=== PATIENT | male | born 1940 | race Caucasian/White ===

== ENCOUNTER 2016-04-01 09:36 | Inpatient (IN) | payer MEDICARE, BC ==
[~2016-04-01] VITALS: Ht 167.6 cm; Wt 87.0 kg
[2016-04-01 10:09] LABS: HEMOGLOBIN 12.2 gm/dl (14.0-17.5); RED BLOOD COUNT 4.54 M/UL (4.20-5.50); WHITE BLOOD COUNT 5.9 K/UL (4.5-11.0)
[2016-04-01] MEDS ORDERED: IBUPROFEN800 MG PO (16:50)
[2016-04-01] MEDS ORDERED: LASIX20 MG PO (16:51)
[2016-04-01] MEDS ORDERED: LISINOPRIL5 MG PO (16:51)
[2016-04-01] MEDS ORDERED: PLAVIX 75 MG TA75 MG PO (16:51)
[2016-04-01] MEDS ORDERED: VITAMIN D31 ML PO (16:52)
[2016-04-01] MEDS ORDERED: METOPROLOL SUCC25 MG PO (16:52)
[2016-04-01] MEDS ORDERED: SUPER B-50 COM1 EACH PO (16:53)
[2016-04-01] MEDS ORDERED: [UNRECOGNIZED DRUG - OTHER] PO (16:54)
[2016-04-01] MEDS ORDERED: MELATONIN10 M2 PO (16:55)
[2016-04-01] MEDS ORDERED: L-CARNITINE250 MG PO (16:56)
[2016-04-01] MEDS ORDERED: CURCUMIN250 GM PO (16:59)
[2016-04-01] MEDS ORDERED: BOSWELLIA SERRAT1 GM PO (16:59)
[2016-04-02 05:56] LABS: HEMOGLOBIN 11.5 gm/dl (14.0-17.5); RED BLOOD COUNT 4.26 M/UL (4.20-5.50)
[2016-04-02 05:58] LABS: WHITE BLOOD COUNT 12.2 K/UL (4.5-11.0)
[2016-04-03 04:21] LABS: RED BLOOD COUNT 4.09 M/UL (4.20-5.50)
[2016-04-03 04:22] LABS: WHITE BLOOD COUNT 15.3 K/UL (4.5-11.0)
[2016-04-04 04:15] LABS: HEMOGLOBIN 10.2 gm/dl (14.0-17.5); RED BLOOD COUNT 3.82 M/UL (4.20-5.50)
[2016-04-04 04:44] LABS: BUN/CREATININE RATIO 35 (0-10)
[2016-04-05 04:12] LABS: HEMOGLOBIN 10.8 gm/dl (14.0-17.5); RED BLOOD COUNT 4.06 M/UL (4.20-5.50); WHITE BLOOD COUNT 17.3 K/UL (4.5-11.0)
[2016-04-05 04:24] LABS: BUN/CREATININE RATIO 41 (0-10)
[2016-04-06 04:37] LABS: HEMOGLOBIN 11.1 gm/dl (14.0-17.5); RED BLOOD COUNT 4.15 M/UL (4.20-5.50)
[2016-04-06 04:40] LABS: WHITE BLOOD COUNT 12.6 K/UL (4.5-11.0)
[2016-04-06 05:09] LABS: BUN/CREATININE RATIO 36 (0-10)
[2016-04-07 04:47] LABS: HEMOGLOBIN 11.7 gm/dl (14.0-17.5); RED BLOOD COUNT 4.35 M/UL (4.20-5.50); WHITE BLOOD COUNT 13.2 K/UL (4.5-11.0)
[2016-04-07 05:06] LABS: BUN/CREATININE RATIO 35 (0-10)
[2016-04-08 03:27] LABS: HEMOGLOBIN 11.9 gm/dl (14.0-17.5); RED BLOOD COUNT 4.4 M/UL (4.20-5.50); WHITE BLOOD COUNT 13.4 K/UL (4.5-11.0)
[2016-04-08 03:58] LABS: BUN/CREATININE RATIO 37 (0-10)
[2016-04-09 03:32] LABS: HEMOGLOBIN 11.2 gm/dl (14.0-17.5); RED BLOOD COUNT 4.2 M/UL (4.20-5.50); WHITE BLOOD COUNT 11.7 K/UL (4.5-11.0)
[2016-04-09 03:47] LABS: BUN/CREATININE RATIO 30 (0-10)
[2016-04-11 04:05] LABS: HEMOGLOBIN 11.4 gm/dl (14.0-17.5); RED BLOOD COUNT 4.28 M/UL (4.20-5.50); WHITE BLOOD COUNT 9.4 K/UL (4.5-11.0)
[2016-04-11 04:17] LABS: BUN/CREATININE RATIO 33 (0-10)
[2016-04-11] MEDS ORDERED: ROCEPHIN IM/I2000 MG IM/IV (16:57)
[2016-04-11] MEDS ORDERED: ASPIR 8181 MG PO (16:58)
[2016-04-11] MEDS ORDERED: ALDACTONE 25MG25 MG PO (17:00)
[2016-04-11] MEDS ORDERED: BRILINTA90 MG PO (17:01)
[2016-04-11] MEDS ORDERED: NITROSTAT 0.40.4 MG SL (17:03)
== END 2016-04-11 21:00 | disposition home health service (06) | DRG 853 ==
LOC: ER1 09:36 → ZEROF 13:28 → CCU 13:28 → PROG CARE 04-08 15:34
PROVIDERS: Emergency Medicine; Internal Medicine; ADMIT Emergency Medicine
PROC: 027034Z Dilation of Coronary Artery, One Artery with Drug-eluting Intraluminal Device, Percutaneous Approach (ICD-10-PCS; principal; 2016-04-01)
PROC: B2111ZZ Fluoroscopy of Multiple Coronary Arteries using Low Osmolar Contrast (ICD-10-PCS; 2016-04-01)
PROC: 5A09457 Assistance with Respiratory Ventilation, 24-96 Consecutive Hours, Continuous Positive Airway Pressure (ICD-10-PCS; 2016-04-01)
PROC: 0H9CXZX Drainage of Left Upper Arm Skin, External Approach, Diagnostic (ICD-10-PCS; 2016-04-07)
PROC: 4A023N7 Measurement of Cardiac Sampling and Pressure, Left Heart, Percutaneous Approach (ICD-10-PCS; 2016-04-07)
PROC: 05HB33Z Insertion of Infusion Device into Right Basilic Vein, Percutaneous Approach (ICD-10-PCS; 2016-04-08)
DX: A40.0 Sepsis due to streptococcus, group A (principal); I21.4 Non-ST elevation (NSTEMI) myocardial infarction; J96.01 Acute respiratory failure with hypoxia; J18.9 Pneumonia, unspecified organism; I50.23 Acute on chronic systolic (congestive) heart failure; M00.9 Pyogenic arthritis, unspecified; T88.6XXA Anaphylactic reaction due to adverse effect of correct drug or medicament properly administered, initial encounter; I47.2 Ventricular tachycardia; E87.2 Acidosis; T82.855A Stenosis of coronary artery stent, initial encounter; I25.10 Atherosclerotic heart disease of native coronary artery without angina pectoris; Z98.61 Coronary angioplasty status; M06.9 Rheumatoid arthritis, unspecified; I10 Essential (primary) hypertension; J44.9 Chronic obstructive pulmonary disease, unspecified; Z82.49 Family history of ischemic heart disease and other diseases of the circulatory system; Z83.3 Family history of diabetes mellitus; T50.905A Adverse effect of unspecified drugs, medicaments and biological substances, initial encounter; K75.89 Other specified inflammatory liver diseases; E87.6 Hypokalemia; I25.5 Ischemic cardiomyopathy; I34.0 Nonrheumatic mitral (valve) insufficiency; I07.1 Rheumatic tricuspid insufficiency; I27.2 Other secondary pulmonary hypertension; M85.871 Other specified disorders of bone density and structure, right ankle and foot; Z87.891 Personal history of nicotine dependence; R31.9 Hematuria, unspecified; Z96.653 Presence of artificial knee joint, bilateral; D64.89 Other specified anemias; E88.09 Other disorders of plasma-protein metabolism, not elsewhere classified; R22.32 Localized swelling, mass and lump, left upper limb; R22.41 Localized swelling, mass and lump, right lower limb; G31.84 Mild cognitive impairment of uncertain or unknown etiology; I95.2 Hypotension due to drugs; T40.2X5A Adverse effect of other opioids, initial encounter; Y92.230 Patient room in hospital as the place of occurrence of the external cause; R30.0 Dysuria; Y71.8 Miscellaneous cardiovascular devices associated with adverse incidents, not elsewhere classified; T40.605A Adverse effect of unspecified narcotics, initial encounter
CPT/HCPCS: ECHO; 36415; 36600; 70450; 71010; 71020; 71250; 72040; 73200; 73201; 73218; 73630; 76536; 77012; 80048; 80053; 80061; 80076; 81001; 82550; 82553; 82803; 83605; 83735; 83874; 83880; 84132; 84439; 84443; 84484; 84550; 85025; 85027; 85347; 85610; 85730; 86140; 87040; 87070; 87077; 87086; 87186; 87205; 93005; 93306; 94660; 96361; 96365; 96366; 96375; 97116; 97530; 99285; C1725; C1769; C1874; C1887; C9600; C9601; J0461; J0583; J0696; J1644; J1650; J1940; J1956; J2250; J2270; J2310; J2405; J2543; J3010; J3370; J7030; J7040; J7050; J7070; Q0163; Q9962; Q9965

== ENCOUNTER → 2016-04-27 | Outpatient (CLI) | payer MEDICARE, BC ==
[~2016-04-27] MED LIST: ALDACTONE 25MG25 MG PO; ASPIR 8181 MG PO; BOSWELLIA SERRAT1 GM PO; BRILINTA90 MG PO; CURCUMIN250 GM PO; IBUPROFEN800 MG PO; L-CARNITINE250 MG PO; LASIX20 MG PO; LISINOPRIL5 MG PO; MELATONIN10 M2 PO; METOPROLOL SUCC25 MG PO; NITROSTAT 0.40.4 MG SL; PLAVIX 75 MG TA75 MG PO; ROCEPHIN IM/I2000 MG IM/IV; SUPER B-50 COM1 EACH PO; VITAMIN D31 ML PO; [UNRECOGNIZED DRUG - OTHER] PO
== END ==
LOC: ECHO 12:00
DX: I50.9 Heart failure, unspecified (principal)
CPT/HCPCS: ECHO; 93306

== ENCOUNTER → 2016-05-04 | Outpatient (CLI) | payer MEDICARE, BC | LOC: OPSV 13:00 | DX: A40.0 Sepsis due to streptococcus, group A (principal); L08.9 Local infection of the skin and subcutaneous tissue, unspecified | CPT/HCPCS: G0463 ==

== ENCOUNTER → 2016-05-25 | Outpatient (CLI) | payer MEDICARE, BC | LOC: KOH-I 10:00 | DX: M65.012 Abscess of tendon sheath, left shoulder (principal) | CPT/HCPCS: 73201; Q9962 ==

== ENCOUNTER → 2020-03-09 | Outpatient (CLI) | payer MEDICARE, BC ==
[~2020-03-09] MED LIST changes: +8 HOUR PAIN RE650 MG PO; +ARAVA10 MG PO; +AZULFIDINE 500500 MG PO; +COREG 3.125M3.125 MG PO; +DICLOFONO2.5 GM TP; +FOSAMAX70 MG PO; +HYDROCODON-ACE1 EAC2 PO; +K-TAB ER20 MEQ PO; -LASIX20 MG PO; +LASIX40 MG PO; +PLAQUENIL 200200 MG PO; +ULTRAM50 MG PO; +VENTOLIN HFA 66.7 GM INH; -VITAMIN D31 ML PO; +VITAMIN D31250 MCG PO
== END ==
LOC: RAD 13:37
DX: R09.89 Other specified symptoms and signs involving the circulatory and respiratory systems (principal); R05 Cough; R91.8 Other nonspecific abnormal finding of lung field
CPT/HCPCS: 71046

== ENCOUNTER 2020-03-17 14:09 | Inpatient (IN) | payer MEDICARE, BC ==
[~2020-03-17] VITALS: Ht 170.2 cm; Wt 80.3 kg
[~2020-03-17 14:09] MED LIST changes: -8 HOUR PAIN RE650 MG PO; -ARAVA10 MG PO; -AZULFIDINE 500500 MG PO; -COREG 3.125M3.125 MG PO; -DICLOFONO2.5 GM TP; -FOSAMAX70 MG PO; -HYDROCODON-ACE1 EAC2 PO; -K-TAB ER20 MEQ PO; -PLAQUENIL 200200 MG PO; -ULTRAM50 MG PO; -VENTOLIN HFA 66.7 GM INH
[2020-03-17 15:18] LABS: HEMOGLOBIN 13.7 gm/dl (14.0-17.5); RED BLOOD COUNT 4.74 M/UL (4.20-5.50); WHITE BLOOD COUNT 10.9 K/UL (4.5-11.0)
[2020-03-17 15:40] LABS: BUN/CREATININE RATIO 32 (0-10)
[2020-03-17] MEDS ORDERED: COREG 3.125M3.125 MG PO (21:36)
[2020-03-17] MEDS ORDERED: HYDROCODON-ACE1 EAC2 PO (21:38)
[2020-03-17] MEDS ORDERED: K-TAB ER20 MEQ PO (21:47)
[2020-03-17] MEDS ORDERED: PLAQUENIL 200200 MG PO (21:47)
[2020-03-17] MEDS ORDERED: VENTOLIN HFA 66.7 GM INH (21:48)
[2020-03-17] MEDS ORDERED: AZULFIDINE 500500 MG PO (21:49)
[2020-03-17] MEDS ORDERED: FOSAMAX70 MG PO (21:49)
[2020-03-17] MEDS ORDERED: DICLOFONO2.5 GM TP (21:50)
[2020-03-17] MEDS ORDERED: ULTRAM50 MG PO (21:51)
[2020-03-17] MEDS ORDERED: 8 HOUR PAIN RE650 MG PO (21:53)
[2020-03-17] MEDS ORDERED: ARAVA10 MG PO (22:40)
[2020-03-18 04:07] LABS: HEMOGLOBIN 13.6 gm/dl (14.0-17.5); RED BLOOD COUNT 4.72 M/UL (4.20-5.50)
[2020-03-18 04:41] LABS: BUN/CREATININE RATIO 32 (0-10)
[2020-03-18 11:53] LABS: BORDETELLA PARAPERTUSSIS Not Detected (Not Detectd); BORDETELLA PERTUSSIS Not Detected (Not Detectd); CHLAMYDIA PNEUMONIAE Not Detected (Not Detectd); CORONAVIRUS HKU1 Not Detected (Not Detectd); CORONAVIRUS NL63 Not Detected (Not Detectd); CORONAVIRUS OC43 Not Detected (Not Detectd); CORONOAVIRUS 229E Not Detected (Not Detectd); HUMAN METAPNEUMOVIRUS Not Detected (Not Detectd); HUMAN RHINOVIRUS/ENTEROVIRUS Not Detected (Not Detectd); INFLUENZA A Not Detected (Not Detectd); INFLUENZA B Not Detected (Not Detectd); MYCOPLASMA PNEUMONIAE Not Detected (Not Detectd); PARAINFLUENZA VIRUS 1 Not Detected (Not Detectd); PARAINFLUENZA VIRUS 2 Not Detected (Not Detectd); PARAINFLUENZA VIRUS 3 Not Detected (Not Detectd); PARAINFLUENZA VIRUS 4 Not Detected (Not Detectd); RESPIRATORY SYNCYTIAL VIRUS Not Detected (Not Detectd)
[2020-03-18 12:56] LABS: SARS-CoV-2 NOT DETECTED (Not Detectd)
[2020-03-19 04:02] LABS: HEMOGLOBIN 13.8 gm/dl (14.0-17.5); RED BLOOD COUNT 4.8 M/UL (4.20-5.50); WHITE BLOOD COUNT 11.1 K/UL (4.5-11.0)
[2020-03-19 04:19] LABS: BUN/CREATININE RATIO 28 (0-10)
--- NOTE | 2020-03-20 05:16 | NUR ---
PT HAS ORDER FOR TEMP PROBE KHALIL TO BE PLACED, BUT PT IS ALERT AND ORIENTED X 4 AND REFUSES TO HAVE KAHLIL PLACED. PER PT, "I WILL WALK TO THE RESTROOM LONG I AM PHYSICALLY ABLE TO." PT HAS DENIED PLACEMENT OF KHALIL FOR ENTIRE SHIFT. WCTM
[2020-03-20 16:11] LABS: ANTIMYELOPEROXIDASE (MPO) ABS <9.0 U/mL (0.0-9.0); ANTIPROTEINASE 3 (PR-3) ABS <3.5 U/mL (0.0-3.5); ATYPICAL PANCA <1:20 titer (Neg:<1:20); CYTOPLASMIC (C-ANCA) <1:20 titer (Neg:<1:20); PERINUCLEAR (P-ANCA) <1:20 titer (Neg:<1:20)
--- NOTE | 2020-03-20 22:52 | NUR ---
AT 1955, PT AND STATED THAT PT WAS HAVING DIFFICULTY BREATHING. UPON ASSESSMENT PT WAS SOB, FLUSHED TO THE FACE, AND HAD A PERISTENT COUGH WITH NO PRODUCTION. LUNG SOUNDS WERE COARSE AND WET TO AUSCULTATION. NOTIFIED OF REPIRATORY DISTRESS. STATED TO ORDER STAT EKG, STAT CARDIAC LAB SET, AND GIVE 2 GRAMS MAGNESIUM SULFATE. AFTER ABNORMAL EKG, MD WAS MADE AWARE OF RESULTS OF EKG. PT WAS C/O HEADACHE. MADE AWARE. STATED TO GIVE 2 MG IVP MORPHINE FOR RESP DISTRESS. MED ALREADY ON PT EMAR. PT DENIED CP. AFTER EKG RESUTLS, STATED TO RECHECK EKG. RESULTS WERE SAME FIRST AND MD MADE AWARE. PT AND STATED THAT THEY WANTED TO CHANGE CODE STATUS TO FULL CODE. MADE AWARE. [facility]
--- NOTE | 2020-03-21 05:08 | NUR ---
AFTER PT WAS PLACED ON BIPAP PER PHYSICIAN ORDER AND GIVEN IVP LASIX ORDERED, PT BECAME MUCH MORE STABLE. PT HAS RESTED COMFORTABLY FOR MOST OF THE NIGHT. PT DECIDED THAT HE WOULD RATHER USE HIS OWN PERSONAL BIPAP FROM HOME. BIPAPR WAS ACQUIRED VIA . KENDELL
--- NOTE | 2020-03-21 05:28 | NUR ---
TEDHOSES AND SCDS WERE PLACED ON PT AT 2230 TO BILAT LOWER EXT. PT TOLERATING WELL.
--- NOTE | 2020-03-21 06:09 | NUR ---
AFTER ORDERING MEDICATION FOR COUGH, PT STATED THAT HE DID NOT WANT TO TAKE IT BECAUSE "IT DOESN'T HELP." KENDELL
[2020-03-21 07:07] LABS: HEMOGLOBIN 13.8 gm/dl (14.0-17.5); RED BLOOD COUNT 4.8 M/UL (4.20-5.50)
[2020-03-21 07:26] LABS: BUN/CREATININE RATIO 22 (0-10)
[2020-03-21 07:37] LABS: WHITE BLOOD COUNT 15.4 K/UL (4.5-11.0)
[2020-03-21 16:09] LABS: BUN/CREATININE RATIO 26 (0-10)
--- NOTE | 2020-03-21 19:18 | NUR ---
AT 1900 ON 03/21/20, PT WAS MOVED TO ROOM 2121 IN ICU PER MD TRANSFER ORDER. PT WAS TRANSPORTED ON BIPAP VIA PRIMARY RN, RESPIRATORY THERAPIST, AND TECH. PT WAS STABLE AND PLACED BACK ONTO AIRVO SETTINGS ON ARRIVAL TO ICU. PRIMARY ICU NURSE PRESENT IN ROOM UPON LEAVING PT.
[2020-03-22 07:13] LABS: RED BLOOD COUNT 4.56 M/UL (4.20-5.50); WHITE BLOOD COUNT 13.1 K/UL (4.5-11.0)
[2020-03-22 07:28] LABS: BUN/CREATININE RATIO 29 (0-10)
--- NOTE | 2020-03-22 09:15 | NUR ---
patients family dropped medications on the floor, had to repull some of the medications. called pharmacy to [facility].
[2020-03-23 05:10] LABS: HEMOGLOBIN 12.7 gm/dl (14.0-17.5); RED BLOOD COUNT 4.42 M/UL (4.20-5.50); WHITE BLOOD COUNT 16.1 K/UL (4.5-11.0)
[2020-03-23 05:29] LABS: BUN/CREATININE RATIO 38 (0-10)
[2020-03-23 11:11] LABS: ASPERGILLUS FUMAGATUS IGG Negative (Negative); AUREOBASIDIUM PULLULANS IGG Negative (Negative); MICROPOLYSPORA FAENI IGG Negative (Negative); PIGEON SERUM IGG Negative (Negative); THERMOACTINOMYCES SACCHARI IGG Negative (Negative); THERMOACTINOMYCES VULGARIS IGG Negative (Negative)
[2020-03-24 05:07] LABS: HEMOGLOBIN 12.8 gm/dl (14.0-17.5); RED BLOOD COUNT 4.57 M/UL (4.20-5.50); WHITE BLOOD COUNT 16.3 K/UL (4.5-11.0)
[2020-03-24 05:32] LABS: BUN/CREATININE RATIO 43 (0-10)
--- NOTE | 2020-03-24 11:11 | NUR ---
03/24/20 1030 ASKED IF ADDITIONAL FAMILY MEMBERS COULD COME SEE THE PATIENT ALL AT ONCE WHILE SHE WAS STILL IN THE ROOM. RN EXPLAINED TO THE AND PATIENT THAT THE [facility] POLICY STATES THAT ONLY ONE VISITOR IS ALLOWED AT A TIME UNLESS PATIENT IS MADE COMFORT MEASURES OR IS END OF LIFE CARE. PATIENT IS A FULL CODE AND STABLE AT THIS TIME. STATED THAT MULTIPLE FAMILY MEMBERS HAVE BEEN ALLOWED IN THE ROOM AT THE SAME TIME IN THE PAST. RN SPOKE TO VOLLEYBALL COMMENTATOR, SYEDA, ABOUT THIS CONVERSTAION WITH THE . SYEDA STATED THAT WE CAN ONLY ALLOW ONE VISITOR AT A TIME FOR THIS PATIENT. RN EXPLAINED TO AGAIN THE VISITOR POLICY AND THE CONVERSATION WITH THE VOLLEYBALL COMMENTATOR. -KITTY ALLRED RN
[2020-03-25 05:46] LABS: BUN/CREATININE RATIO 36 (0-10)
[2020-03-26 04:55] LABS: HEMOGLOBIN 13.4 gm/dl (14.0-17.5); RED BLOOD COUNT 4.69 M/UL (4.20-5.50); WHITE BLOOD COUNT 14.9 K/UL (4.5-11.0)
[2020-03-26 05:14] LABS: BUN/CREATININE RATIO 41 (0-10)
[2020-03-27 04:54] LABS: HEMOGLOBIN 14.7 gm/dl (14.0-17.5); RED BLOOD COUNT 5.1 M/UL (4.20-5.50)
[2020-03-27 04:58] LABS: WHITE BLOOD COUNT 19.9 K/UL (4.5-11.0)
[2020-03-27 05:31] LABS: BUN/CREATININE RATIO 41 (0-10)
--- NOTE | 2020-03-27 16:06 | NUR ---
1605: ATTEMPTED TO NOTIFY MD OF PATIENTS LOW BLOOD PRESSURE OF 84/51 AND MAP OF 60. MD WAS CALLED TWICE WITH NO ANSWER. WILL CONTINUE TO TRY TO REACH MD.
[2020-03-28 05:21] LABS: HEMOGLOBIN 13.3 gm/dl (14.0-17.5); RED BLOOD COUNT 4.62 M/UL (4.20-5.50); WHITE BLOOD COUNT 17.2 K/UL (4.5-11.0)
[2020-03-28 05:43] LABS: BUN/CREATININE RATIO 37 (0-10)
[2020-03-29 05:16] LABS: HEMOGLOBIN 14.5 gm/dl (14.0-17.5)
[2020-03-29 05:22] LABS: RED BLOOD COUNT 5.14 M/UL (4.20-5.50); WHITE BLOOD COUNT 31.6 K/UL (4.5-11.0)
[2020-03-30 05:45] LABS: HEMOGLOBIN 12.8 gm/dl (14.0-17.5)
[2020-03-30 05:47] LABS: RED BLOOD COUNT 4.5 M/UL (4.20-5.50); WHITE BLOOD COUNT 18.7 K/UL (4.5-11.0)
[2020-03-30 06:35] LABS: BUN/CREATININE RATIO 45 (0-10)
[2020-03-31 05:12] LABS: HEMOGLOBIN 12.1 gm/dl (14.0-17.5); RED BLOOD COUNT 4.33 M/UL (4.20-5.50); WHITE BLOOD COUNT 14.2 K/UL (4.5-11.0)
[2020-03-31 05:28] LABS: BUN/CREATININE RATIO 62 (0-10)
[2020-04-01 05:38] LABS: HEMOGLOBIN 11.3 gm/dl (14.0-17.5); RED BLOOD COUNT 4.06 M/UL (4.20-5.50); WHITE BLOOD COUNT 9.8 K/UL (4.5-11.0)
[2020-04-01 06:04] LABS: BUN/CREATININE RATIO 58 (0-10)
[2020-04-02 03:17] LABS: HEMOGLOBIN 11.8 gm/dl (14.0-17.5); RED BLOOD COUNT 4.2 M/UL (4.20-5.50)
[2020-04-02 03:34] LABS: BUN/CREATININE RATIO 79 (0-10)
[2020-04-03 05:39] LABS: HEMOGLOBIN 11.2 gm/dl (14.0-17.5); RED BLOOD COUNT 3.99 M/UL (4.20-5.50); WHITE BLOOD COUNT 8.8 K/UL (4.5-11.0)
[2020-04-03 06:02] LABS: BUN/CREATININE RATIO 96 (0-10)
[2020-04-03 15:29] LABS: BUN/CREATININE RATIO 79 (0-10)
[2020-04-04 04:32] LABS: HEMOGLOBIN 12.1 gm/dl (14.0-17.5); RED BLOOD COUNT 4.33 M/UL (4.20-5.50)
[2020-04-04 04:47] LABS: WHITE BLOOD COUNT 11.5 K/UL (4.5-11.0)
[2020-04-05 04:23] LABS: HEMOGLOBIN 11.6 gm/dl (14.0-17.5); RED BLOOD COUNT 4.15 M/UL (4.20-5.50); WHITE BLOOD COUNT 9.4 K/UL (4.5-11.0)
[2020-04-05 04:53] LABS: BUN/CREATININE RATIO 106 (0-10)
[2020-04-06 05:24] LABS: HEMOGLOBIN 11.6 gm/dl (14.0-17.5); RED BLOOD COUNT 4.08 M/UL (4.20-5.50); WHITE BLOOD COUNT 8.6 K/UL (4.5-11.0)
[2020-04-06 05:46] LABS: BUN/CREATININE RATIO 119 (0-10)
[2020-04-07 05:52] LABS: HEMOGLOBIN 12.4 gm/dl (14.0-17.5); RED BLOOD COUNT 4.32 M/UL (4.20-5.50); WHITE BLOOD COUNT 10.4 K/UL (4.5-11.0)
[2020-04-07 06:10] LABS: BUN/CREATININE RATIO 106 (0-10)
[2020-04-08 05:58] LABS: HEMOGLOBIN 12.1 gm/dl (14.0-17.5); RED BLOOD COUNT 4.37 M/UL (4.20-5.50); WHITE BLOOD COUNT 10.7 K/UL (4.5-11.0)
[2020-04-08 06:13] LABS: BUN/CREATININE RATIO 106 (0-10)
== END 2020-04-10 23:46 | disposition expired | DRG 130 ==
LOC: ER1 14:09 → M/S 17:16 → CCU 17:16 → CDU 17:16 → M/S 03-18 06:13 → CCU 03-21 18:59 → PROG CARE 03-27 01:25 → CCU 03-28 12:44
PROVIDERS: Internal Medicine; Internal Medicine Infectious Disease; Internal Medicine Pulmonary Disease; Nurse Practitioner Family; Physician Assistant; Student in an Organized Health Care Education/Training Program; ADMIT Family Medicine
PROC: 5A09557 Assistance with Respiratory Ventilation, Greater than 96 Consecutive Hours, Continuous Positive Airway Pressure (ICD-10-PCS; 2020-03-17)
PROC: B24BZZZ Ultrasonography of Heart with Aorta (ICD-10-PCS; 2020-03-18)
PROC: 0B9C8ZX Drainage of Right Upper Lung Lobe, Via Natural or Artificial Opening Endoscopic, Diagnostic (ICD-10-PCS; 2020-03-19)
PROC: 0BBC8ZX Excision of Right Upper Lung Lobe, Via Natural or Artificial Opening Endoscopic, Diagnostic (ICD-10-PCS; principal; 2020-03-19 08:30)
PROC: 5A0955A Assistance with Respiratory Ventilation, Greater than 96 Consecutive Hours, High Flow/Velocity Cannula (ICD-10-PCS; 2020-03-21)
PROC: 5A1955Z Respiratory Ventilation, Greater than 96 Consecutive Hours (ICD-10-PCS; 2020-03-28)
PROC: 0BH17EZ Insertion of Endotracheal Airway into Trachea, Via Natural or Artificial Opening (ICD-10-PCS; 2020-03-28)
PROC: 3E033XZ Introduction of Vasopressor into Peripheral Vein, Percutaneous Approach (ICD-10-PCS; 2020-03-28)
PROC: 0DH67UZ Insertion of Feeding Device into Stomach, Via Natural or Artificial Opening (ICD-10-PCS; 2020-03-28)
DX: J84.89 Other specified interstitial pulmonary diseases (principal); J96.01 Acute respiratory failure with hypoxia; I50.23 Acute on chronic systolic (congestive) heart failure; G92 Toxic encephalopathy; J15.9 Unspecified bacterial pneumonia; N17.9 Acute kidney failure, unspecified; E87.0 Hyperosmolality and hypernatremia; I42.9 Cardiomyopathy, unspecified; R57.9 Shock, unspecified; I11.0 Hypertensive heart disease with heart failure; M06.9 Rheumatoid arthritis, unspecified; I25.10 Atherosclerotic heart disease of native coronary artery without angina pectoris; I48.0 Paroxysmal atrial fibrillation; H70.90 Unspecified mastoiditis, unspecified ear; R00.1 Bradycardia, unspecified; T39.4X5A Adverse effect of antirheumatics, not elsewhere classified, initial encounter; R79.89 Other specified abnormal findings of blood chemistry; Z87.891 Personal history of nicotine dependence; G47.30 Sleep apnea, unspecified; N40.0 Benign prostatic hyperplasia without lower urinary tract symptoms; Z98.890 Other specified postprocedural states; Z20.822 Contact with and (suspected) exposure to COVID-19; Z96.653 Presence of artificial knee joint, bilateral; G47.33 Obstructive sleep apnea (adult) (pediatric); Z96.641 Presence of right artificial hip joint; Z66 Do not resuscitate; T38.0X5A Adverse effect of glucocorticoids and synthetic analogues, initial encounter; T42.75XA Adverse effect of unspecified antiepileptic and sedative-hypnotic drugs, initial encounter; D70.8 Other neutropenia; Z51.5 Encounter for palliative care; I95.2 Hypotension due to drugs; Z79.01 Long term (current) use of anticoagulants; Z83.3 Family history of diabetes mellitus; Z82.49 Family history of ischemic heart disease and other diseases of the circulatory system; Z98.49 Cataract extraction status, unspecified eye; Z91.19 Patient's noncompliance with other medical treatment and regimen
CPT/HCPCS: ECHO; 0240U; 31500; 36415; 36600; 70450; 71045; 71250; 76000; 80048; 80053; 80162; 80202; 81001; 82550; 82553; 82800; 82803; 82962; 83520; 83605; 83735; 83880; 84100; 84484; 85025; 85027; 85610; 85652; 85730; 86140; 86256; 86331; 86602; 86609; 86671; 87015; 87040; 87070; 87081; 87086; 87116; 87205; 87206; 87252; 87633; 93005; 93306; 94002; 94003; 94640; 94660; 94760; 96365; 96366; 96368; 97110-GP-CQ; 97161; 99285; J0456; J0696; J1205; J1335; J1650; J1940; J2060; J2250; J2270; J2543; J2704; J2920; J2930; J3010; J3370; J3475; J7030; J7040; J7050; J7070; U0002